=== PATIENT | male | born 1965 | race Caucasian/White ===

== ENCOUNTER 2023-10-24 13:08 | Outpatient (POV) | payer MEDICARE, SELFPAY ==
--- NOTE | 2023-10-24 13:38 | EXP.PAIN.OV ---
HPI Data of Consult Patient: new to practice Consult date: 10/24/23 Requesting Physician: Nina Le APRN Consult Narrative Reason for consult: Neck pain, upper extremity pain/numbness History of present illness: Mr. Steven is a 58 year old male who presents today as a new patient. He is a referral from [facility] primary care today he rates his pain a 7 out of 10. Patient states he has chronic pain in his neck. He states this is all related to a fall he had that he fell off of a balcony and landed on his head years ago. He states he did have a severe subdural hematoma that did require surgery however denies any other surgery related to this injury. He does describe his pain as a sharp burning, stabbing sensation. He states that he has very limited range of motion of his neck and it does interfere with his ability perform activities of daily living such as cooking and cleaning. Patient does state that he did try [id number] Tylenol and ibuprofen along with heat and ice and topicals with minimal relief. He does state that he will still use ice and heating pad from time to time with temporary relief. He does state that the pain does go into his upper extremities with numbness and tingling in his arms down to his fingers. Patient was previously at a pain management facility where he did try multiple injections with only temporary relief. Patient denies any previous physical therapy or chiropractor therapy. He states he has not had any recent imaging over the last couple of years. He states that he did have he believes cervical MRI at [facility] in either [place] or [place]. Patient states he even had a cervical ablation however this made his symptoms even worse. Patient does state that he was prescribed gabapentin and oxycodone at this facility. He states this did help. He states that he ended up having to stop going to this provider because his insurance changed and they did not take it any longer. He does state that his primary care has been prescribing his current medications however they have stated they are not able to continue this. Patient is currently prescribed gabapentin 600 mg 3 times a day and oxycodone 10 mg 4 times a day. He does state that he has seen a neck specialist in the past and that this may be something in the future that he goes to as well. His Abel has been reviewed. CC: Nina Le APRN [facility] Disclaimer: The information contained in this section may have been updated after the patient was seen, as this information can be updated by other users. Medical History (Updated 10/24/23 @ 13:59 by Nina Le APRN) Chronic pain Erectile dysfunction Umbilical hernia HTN (hypertension) Surgical History (Updated 10/24/23 @ 13:21 by Marcia Purvis, RN) Hx of tonsillectomy History of nasal surgery H/O brain surgery H/O hand surgery H/O inguinal hernia repair H/O colonoscopy H/O esophagogastroduodenoscopy Family History (Updated 10/24/23 @ 13:19 by Marcia Purvis, HUY) Other Unknown family medical history Social History Smoking Status: Former smoker alcohol intake: never current occupational status: other Travel in the last 8 weeks: None Review of Systems Review of Systems Review of systems:: pertinent systems reviewed and negative unless documented below Review of systems (narrative): Review of Systems: General: No recent weight changes, no fever, no sleep disturbances Respiratory: No cough, no shortness of air, no recurring pulmonary infections Cardiovascular/peripheral vascular: No chest pain, no palpitations, no edema, no shortness of breath Gastrointestinal: No new onset incontinence, normal bowel movements reported Genitourinary: No new onset incontinence Musculoskeletal: Neck pain, bilateral arm/finger numbness Psychiatric: [Normal mood/affect] Neurological: [Denies weakness in extremities], [denies balance issues] Meds Home Medications and Allergies Home Medications Medication Instructions Recorded Confirmed Type amlodipine 10 mg tablet 10 mg PO DIRECTED BLOOD PRESSURE 10/24/23 10/24/23 History gabapentin 600 mg tablet 600 mg PO DIRECTED Pain 10/24/23 10/24/23 History oxycodone 10 mg tablet 10 mg PO DIRECTED Pain 10/24/23 10/24/23 History New Prescriptions to Start Prescriptions: Allergies Allergy/AdvReac Type Severity Reaction Status Date / Time codeine [CODEINE] Allergy Mild Unverified 07/19/17 14:13 Objective Narrative: Physical Exam: General: Alert and oriented x3, no acute distress, pleasant and cooperative Lungs: Respirations even and unlabored, symmetrical chest expansion Eyes: PERRL Musculoskeletal: Flexion and extension of cervical [spine] somewhat guarded secondary to pain, [antalgic gait noted] Neurological: Speech clear, no gross sensory deficit Assessment and Plan *Assessment and plan (1) Chronic neck pain: Status: Acute Category: Medical Code(s): M54.2 - Cervicalgia; G89.29 - Other chronic pain (2) Cervical radiculopathy: Status: Acute Category: Medical Code(s): M54.12 - Radiculopathy, cervical region Plan Patient is experiencing significant pain in his neck and upper extremities. I have discussed with the patient that we are an interventional pain clinic and that we do more hands-on such as the injections or spinal cord stimulator or pain pump trial. I have discussed with the patient due to his prior history of injections that did not work or only lasted for temporary times that he may be a beneficial candidate of a spinal cord stimulator or pump trial. Risk and benefits and educational handouts were given at today's visit. Patient would like time to read up on these devices. I have counseled the patient that there is no rash and that we can talk about questions or concerns at his next visit. I will order the patient a compounded cream in the meantime. Patient will return to clinic in 1 month for reevaluation of symptoms and plan of care. Patient has been instructed to contact the clinic with any concerns before the next appointment. Dr. Martines has reviewed this note and agrees with this plan of care. This note was dictated using voice recognition software and make contain errors or omissions.
[2023-10-24 13:58] VITALS: BP 123/87; PULSE 123; RESP 19; O2SAT 96; BMI 29.0
== END 2023-10-24 23:59 ==
PROVIDERS: Visit Provider Nurse Practitioner Family
DX: M54.2 Cervicalgia (principal); G89.29 Other chronic pain; M54.12 Radiculopathy, cervical region
CPT/HCPCS: 99202; G0463